=== PATIENT | female | born 1930 | race Two or more races ===

== ENCOUNTER 2017-09-05 16:53 | Emergency (ER) | payer MEDICARE, OTHER ==
[~2017-09-05] VITALS: Ht 152.4 cm; Wt 49.9 kg
[2017-09-05 17:04] VITALS: BP 157/69
[2017-09-05 17:58] LABS: APPEARANCE,URINE CLEAR; BILIRUBIN, URINE NEGATIVE (NEGATIVE); GLUCOSE, URINE (UA) NEGATIVE (NEGATIVE); KETONES,URINE 1+ (NEGATIVE); LEUKOCYTE ESTERASE ,URINE NEGATIVE (NEGATIVE); NITRITE,URINE NEGATIVE (NEGATIVE); PH,URINE 5 (4.5-8.0); PROTEIN,URINE 1+ (NEGATIVE); UROBILINOGEN,URINE NORMAL MG/DL (0.0-1.0)
[2017-09-05 18:01] LABS: COLOR,URINE YELLOW
[2017-09-05 18:50] LABS: BASOPHILS % (AUTO) 0.9 % (0.0-2.0); EOSINOPHILS % (AUTO) 0.3 % (0.0-3.0); HEMATOCRIT 43.5 % (37.0-47.0); HEMOGLOBIN 14.7 G/DL (12.0-16.0); LYMPHOCYTES % (AUTO) 21.8 % (20.0-45.0); MEAN CORPUSCULAR VOLUME 88 FL (80-99); MONOCYTES % (AUTO) 10.8 % (1.0-10.0); NEUTROPHILS % (AUTO) 66.2 % (45.0-75.0); PLATELET COUNT 197 K/UL (150-450); RED BLOOD COUNT 4.92 M/UL (4.20-5.40); RED CELL DISTRIBUTION WIDTH 11.8 % (11.6-14.8); WHITE BLOOD COUNT 5.5 K/UL (4.8-10.8)
[2017-09-05 19:05] LABS: ANION GAP 10 mmol/L (5-15); BLOOD UREA NITROGEN 20 mg/dL (7-18); CALCIUM 8.7 MG/DL (8.5-10.1); CARBON DIOXIDE 28 MMOL/L (21-32); CHLORIDE 100 MMOL/L (98-107); CREATININE 0.9 MG/DL (0.55-1.30); POTASSIUM 3.7 MMOL/L (3.5-5.1); SODIUM 137 MMOL/L (136-145)
[2017-09-05 19:18] LABS: ALANINE AMINOTRANSFERASE 43 U/L (12-78); ALBUMIN 3.4 G/DL (3.4-5.0); ALBUMIN/GLOBULIN RATIO 0.9 (1.0-2.7); ALKALINE PHOSPHATASE 45 U/L (46-116); ASPARTATE AMINO TRANSFERASE 42 U/L (15-37); BILIRUBIN,TOTAL 0.3 MG/DL (0.2-1.0); CKMB 0.8 NG/ML (0.0-3.6); CREATINE KINASE 110 U/L (26-308)
[2017-09-05] MEDS ORDERED: Albuterol/Ipratropium 3ml neb HHN ONE (19:30)
[2017-09-05] MEDS ORDERED: ZITHROMAX250 MG ORAL (19:57)
[2017-09-05] MEDS ORDERED: cefTRIAXone 1 GM in NS 55 ML IVPB ONE (20:00)
--- NOTE | 2017-09-05 21:41 | Emergency Room Report ---
History of Present Illness General Chief Complaint: Multiple Trauma/Fall Source: Patient, Medical Record Present Illness HPI Patient is a 87-year-old female who presented after increased fever and fall. The patient was noted to have followed her [facility]. Patient was noted to have an found on the floor. She was noted to have some difficulty with ambulation. Patient was noted to have fever up to 101. She reports having some increased cough which is nonproductive. The patient is brought in by EMS. The patient was brought in with her daughter Allergies: Uncoded Allergies: PLASTIC TAPE (Allergy, Unknown, 09/05/17) Patient History Past Medical History: see triage record Reviewed Nursing Documentation: PMH: Agreed; PSxH: Agreed Nursing Documentation-PMH Past Medical History: No History, Except For Hx Hypertension: Yes Hx Asthma: Yes Review of Systems All Other Systems: negative except mentioned in HPI Physical Exam Vital Signs Date Time Temp Pulse Resp B/P (MAP) Pulse Ox O2 Delivery O2 Flow Rate FiO2 09/05/17 16:54 101.6 86 16 159/76 96 Nasal Cannula 2.0 101.7 Sp02 EP Interpretation: reviewed, normal General Appearance: normal inspection, no apparent distress, alert, GCS 15, non -toxic, Chronically Ill Head: atraumatic ENT: normal ENT inspection, hearing grossly normal, normal voice Neck: normal inspection, supple, no bony tend, limited range of motion Respiratory: normal inspection, normal breath sounds, no respiratory distress, no retraction, wheezing Cardiovascular #1: regular rate, rhythm, no edema Gastrointestinal: normal inspection, normal bowel sounds, non tender, soft, no guarding, no hernia Genitourinary: no CVA tenderness Musculoskeletal: normal inspection, back normal, normal range of motion Neurologic: normal inspection, alert, oriented x3, responsive, speech normal Psychiatric: normal inspection, judgement/insight normal, mood/affect normal Skin: normal inspection, normal color, no rash Medical Decision Making Diagnostic Impression: Primary Impression: Fall Additional Impressions: Spinal stenosis Pneumonitis ER Course Patient presented for fall. Differential diagnosis included was not limited to neck fracture, CVA, close head injury, syncopal episode, basilar ischemia. Because of complexity of patient's case laboratory testing and imaging studies were ordered. Laboratory testing showed normal white blood count. The patient was noted to have CT the head read by radiologist with atrophic changes without evident intracranial hemorrhage. CT cervical spine read by radiology showed degenerative changes with C3-C4 severe stenosis. The patient started on IV antibiotics after blood cultures were obtained. Chest x-ray one view showed a left atelectasis with normal cardiac size. The patient was discussed with her primary care physician who will continue treating the patient at [facility]. Labs Test 09/05/17 17:35 09/05/17 18:15 Urine Color Yellow Urine Appearance Clear Urine pH 5 (4.5-8.0) Urine Specific [place] 1.015 (1.005-1.035) Urine Protein 1+ (NEGATIVE) Urine Glucose (UA) Negative (NEGATIVE) Urine Ketones 1+ (NEGATIVE) Urine Occult Blood Negative (NEGATIVE) Urine Nitrite Negative (NEGATIVE) Urine Bilirubin Negative (NEGATIVE) Urine Urobilinogen Normal MG/DL (0.0-1.0) Urine Leukocyte Esterase Negative (NEGATIVE) Urine RBC 0-2 /HPF (0 - 2) Urine WBC 0-2 /HPF (0 - 2) Urine Squamous Epithelial Cells Occasional /LPF Urine Bacteria Occasional /HPF (NONE) White Blood Count 5.5 K/UL (4.8-10.8) Red Blood Count 4.92 M/UL (4.20-5.40) Hemoglobin 14.7 G/DL (12.0-16.0) Hematocrit 43.5 % (37.0-47.0) Mean Corpuscular Volume 88 FL (80-99) Mean Corpuscular Hemoglobin 29.8 PG (27.0-31.0) Mean Corpuscular Hemoglobin Concent 33.7 G/DL (32.0-36.0) Red Cell Distribution Width 11.8 % (11.6-14.8) Platelet Count 197 K/UL (150-450) Mean Platelet Volume 6.8 FL (6.5-10.1) Neutrophils (%) (Auto) 66.2 % (45.0-75.0) Lymphocytes (%) (Auto) 21.8 % (20.0-45.0) Monocytes (%) (Auto) 10.8 % (1.0-10.0) Eosinophils (%) (Auto) 0.3 % (0.0-3.0) Basophils (%) (Auto) 0.9 % (0.0-2.0) Sodium Level 137 MMOL/L (136-145) Potassium Level 3.7 MMOL/L (3.5-5.1) Chloride Level 100 MMOL/L (98-107) Carbon Dioxide Level 28 MMOL/L (21-32) Anion Gap 10 mmol/L (5-15) Blood Urea Nitrogen 20 mg/dL (7-18) Creatinine 0.9 MG/DL (0.55-1.30) Estimat Glomerular Filtration Rate mL/min (>60) Glucose Level 100 MG/DL (74-106) Lactic Acid Level 0.90 mmol/L (0.66-2.22) Calcium Level 8.7 MG/DL (8.5-10.1) Total Bilirubin 0.3 MG/DL (0.2-1.0) Aspartate Amino Transf (AST/SGOT) 42 U/L (15-37) Alanine Aminotransferase (ALT/SGPT) 43 U/L (12-78) Alkaline Phosphatase 45 U/L (46-116) Total Creatine Kinase 110 U/L (26-308) Creatine Kinase MB 0.8 NG/ML (0.0-3.6) Creatine Kinase MB Relative Index 0.7 Troponin I 0.011 ng/mL (0.000-0.056) Total Protein 7.4 G/DL (6.4-8.2) Albumin 3.4 G/DL (3.4-5.0) Globulin 4.0 g/dL Albumin/Globulin Ratio 0.9 (1.0-2.7) EKG Diagnostic Results Rate: normal Rhythm: NSR ST Segments: no acute changes Last Vital Signs Date Time Temp Pulse Resp B/P (MAP) Pulse Ox O2 Delivery O2 Flow Rate FiO2 09/05/17 20:21 85 18 100 Room Air 09/05/17 18:35 101.1 09/05/17 17:04 157/69 09/05/17 16:54 2.0 Status: improved Disposition: XFER SNF Condition: Stable Scripts Azithromycin* (ZITHROMAX*) 250 Mg Tablet 250 MG ORAL DAILY, #6 TAB 0 Refills Take two tables once daily for 1 day, then one tablet once daily for 4 days. Prov: Chris Gay 09/05/17 Patient Instructions: Pneumonitis Chris Gay Sep 05, 2017 21:41
[2017-09-05 22:00] VITALS: BP 140/64
[2017-09-05 22:17] VITALS: BP 140/64
--- NOTE | 2017-09-06 08:21 | Diagnostic Imaging Report ---
Indication: Head and neck pain, status post fall today Technique: Spiral acquisitions obtained through the cervical spine. No IV contrast utilized. Multiplanar reconstructions were generated. Total dose length product 1594.71 mGycm. CTDIvol(s) 70.38,17.88 mGy. Dose reduction achieved using automated exposure control. Comparison: none Findings: Slight anterior offset of C2 on C3, slight posterior offset of C3 on C4, slight anterior offset of C4 and C5, slight posterior offset of C5 on C6, all presumably due to degenerative change. Slight straightening of the normal cervical lordosis and slight rightward scoliotic deformity is probably due to muscular splinting. Otherwise normal bony alignment. No acute fractures. No dislocations. Vertebral body heights are preserved. There is degenerative narrowing of the anterior atlantoaxial joint, and thickening and calcification in the posterior aspect of the atlantoaxial ligament. There is moderate degenerative disc narrowing at C2-3. There is moderate to severe neural foraminal stenosis on the right. Short pedicles and osteophytes result in borderline narrowing of the spinal canal. There is mild bilateral facet arthrosis At C3-4, the disc spaces nearly obliterated. Posterior osteophytes and short pedicles result in moderate narrowing of the spinal canal, likely impingement on the cord. There is severe bilateral neural foraminal stenosis. There is right-sided facet arthrosis. At C4-5, there is moderate to severe degenerative disc narrowing. There are posterior osteophytes, but no significant spinal canal stenosis. There is moderate to severe bilateral neural foraminal stenosis. There is bilateral facet arthrosis. At C5-6, there is near obliteration of the disc space. Posterior osteophytes and short pedicles result in mild to moderate narrowing of the spinal canal. There is moderate right and severe left neural foraminal narrowing. At C6-7, there is moderate to severe degenerative disc narrowing. Short pedicles result in borderline narrowing of the spinal canal. There is moderate right and severe left neural foraminal stenosis, left greater than right facet arthrosis. At C7-T1, there is moderate degenerative disc narrowing. There is mild to moderate bilateral neural foraminal stenosis. There is bilateral facet arthrosis. The included soft tissues demonstrate multiple thyroid nodules, several with calcifications. Impression: No acute bony trauma Extensive multilevel degenerative changes as detailed on a level by level basis above Multiple thyroid nodules. Consider sonography if clinically indicated This agrees with the preliminary interpretation provided overnight by [facility]. The CT scanner at [facility] is accredited by the [employer] and the scans are performed using protocols designed to limit radiation exposure to as low as reasonably achievable to attain images of sufficient resolution adequate for diagnostic evaluation.
--- NOTE | 2017-09-06 08:23 | Diagnostic Imaging Report ---
Indication: Head and neck pain, status post fall Technique: spiral acquisitions obtained through the brain. Angled axial and coronal 5 x 5 mm slices were reconstructed. No IV contrast utilized. Radiation dose was minimized using automated exposure control Total dose length product 1594.71 mGycm. CTDIvol(s) 70.38,17.88 mGy Comparison: none FINDINGS: No acute hemorrhage or edema. No mass effect or midline shift. There is age-related enlargement of the ventricles and extra axial CSF spaces. There is periventricular deep white matter ischemic change. Normal espinoza-white differentiation. There is evidence of prior bilateral ocular surgery. Visualized sinuses are unremarkable. Intact calvarium. IMPRESSION: Chronic and age-related changes. Negative for acute intracranial bleed or mass effect This agrees with the preliminary interpretation provided overnight by [facility]. The CT scanner at [facility] is accredited by the [employer] and the scans are performed using protocols designed to limit radiation exposure to as low as reasonably achievable to attain images of sufficient resolution adequate for diagnostic evaluation
--- NOTE | 2017-09-06 09:59 | Diagnostic Imaging Report ---
Indication: Shortness of breath Technique: One view of the chest Comparison: none Findings: The patient is rotated to the left. A band of atelectasis or scarring is seen in the left midlung. Right suprahilar atelectasis is demonstrated. Lungs and pleural spaces are otherwise clear. There is mitral annular calcification. The heart is borderline enlarged. Surgical clips are seen in the left breast Impression: No acute process Bilateral atelectasis and/or scarring Borderline cardiomegaly
--- NOTE | 2017-09-06 10:00 | Diagnostic Imaging Report ---
Indication: Pain, status post fall Technique: One view of the pelvis Comparison: none Findings: Overlying monitor wire could obscure pathology No acute fractures. No dislocations. The joint spaces are preserved. There are degenerative changes of the lumbar spine Impression: Negative Note, however, that an elderly osteopenic patients, nondisplaced hip or pelvic fractures can easily be occult. Consider cross-sectional imaging if there is high clinical suspicion
--- NOTE | 2017-09-06 16:09 | Cardiology Report ---
APPROVED REPORT EKG Measurement Heart [id number] Normal sinus rhythm Possible Left atrial enlargement Septal infarct, age undetermined Abnormal ECG
== END 2017-09-05 22:17 ==
LOC: EDBD 16:53 → EMR 17:05
DX: J18.9 Pneumonia, unspecified organism (principal); M48.02 Spinal stenosis, cervical region; E04.2 Nontoxic multinodular goiter; R06.02 Shortness of breath; R51 Headache; R26.2 Difficulty in walking, not elsewhere classified; W18.30XA Fall on same level, unspecified, initial encounter; Y92.129 Unspecified place in nursing home as the place of occurrence of the external cause; I10 Essential (primary) hypertension; J45.909 Unspecified asthma, uncomplicated
CPT/HCPCS: 36415; 70450; 71045; 72125; 72170; 80053; 81003; 82550; 82553; 83605; 84484; 85025; 86710; 87040; 93005; 94640; 94664; 96374; 99284; J0696; J7620